=== PATIENT | male | born 1985 | race Hispanic/Latino ===

== ENCOUNTER 2017-09-07 18:05 | Emergency (ER) | payer BC ==
[2017-09-07 18:28] VITALS: BP 166/98; RESP 16; TEMP 98.2; O2SAT 100
--- NOTE | 2017-09-07 19:51 | ED PDOC ---
HPI: General Adult Time Seen by Provider: 09/07/17 19:08 Chief Complaint (Nursing): Palpitations Chief Complaint (Provider): Sinus pressure History Per: Patient History/Exam Limitations: no limitations Onset/Duration Of Symptoms: Days (x1 week) Have you had recent travel within the past 21 days to any of the following countries: [place], [place], [place] or [place]?: No Additional Complaint(s): 32 year old mal with past medical history of chronics sinus disease and anxiety presents to the the ED complaining of sinus pressure in the forehead and nose. The patient states that for the past year he has had these symptoms but it had gotten worse over the past week. He further reports that today he began to feel anxious, felt a sense of impending doom and said he felt his heart racing out of his chest. Upon arrival to the ER patient states that he is feeling better. PMD: [facility] Past Medical History Reviewed: Historical Data, Nursing Documentation Vital Signs: Last Vital Signs Temp 98.2 F 09/07/17 18:26 Pulse 106 H 09/07/17 18:26 Resp 16 09/07/17 18:26 BP 166/98 H 09/07/17 18:26 Pulse Ox 100 09/07/17 20:05 - Medical History PMH: Anxiety Other PMH: Chronis Sinus Disease - Surgical History Surgical History: No Surg Hx - Family History Family History: States: Unknown Family Hx - Social History Current smoker - smoking cessation education provided: No Alcohol: None Drugs: Denies - Home Medications Home Medications: Ambulatory Orders Medication Instructions Recorded Fluticasone Nasal [Flonase] 1 - 2 spr NS DAILY #1 spr 09/07/17 predniSONE [predniSONE Tab] 60 mg PO DAILY #9 tab 09/07/17 - Allergies Allergies/Adverse Reactions: Allergies Allergy/AdvReac Type Severity Reaction Status Date / Time Sulfa (Sulfonamide Allergy RASH Verified 09/07/17 18:26 Antibiotics) Review of Systems ROS Statement: Except As Marked, All Systems Reviewed And Found Negative ENT: Positive for: Other (sinus pressure in forehead and nose.) Psych: Positive for: Anxiety Physical Exam - Reviewed Nursing Documentation Reviewed: Yes Vital Signs Reviewed: Yes - Physical Exam Appears: Positive for: Non-toxic, No Acute Distress Head Exam: Positive for: ATRAUMATIC, NORMAL INSPECTION, NORMOCEPHALIC Skin: Positive for: Normal Color, Warm, Dry. Negative for: Rash Eye Exam: Positive for: Normal appearance, EOMI, PERRL ENT: Positive for: Other (tenderness to maxillary and ethmoid sinus ). Negative for: Nasal Congestion, Tonsillar Exudate Neck: Positive for: Normal, Painless ROM, Supple Cardiovascular/Chest: Positive for: Regular Rate, Rhythm, Chest Non Tender. Negative for: Tachycardia Respiratory: Positive for: Normal Breath Sounds. Negative for: Wheezing, Respiratory Distress Gastrointestinal/Abdominal: Positive for: Normal Exam, Bowel Sounds, Soft. Negative for: Tenderness, Guarding, Rebound Back: Positive for: Normal Inspection. Negative for: L CVA Tenderness, R CVA Tenderness Extremity: Positive for: Normal ROM. Negative for: Tenderness, Deformity, Swelling Neurologic/Psych: Positive for: Alert, Oriented, Gait - ECG O2 Sat by Pulse Oximetry: 100 (RA) Pulse Ox Interpretation: Normal Medical Decision Making Medical Decision Makin Initial Impression 32 y/o male presenting with anxiety and chronic sinus disease Initial Plan: * Troponin * Reevaluation 8PM Patient is feeling better. Recommended using neti pot and nasal/oral steroids and following up with ENT. Patient agreeble to plan. Return precautions discussed. Documented by Wanda arteaga acting as a scribe for José Miguel Rousseau MD. All medical record entries made by the Scribe were at my direction and personally dictated by me. I have reviewed the chart and agree that the record accurately reflects my personal performance of the history, physical exam, medical decision making, and the department course for this patient. I have also personally directed, reviewed, and agree with the discharge instructions and disposition. Disposition - Clinical Impression Clinical Impression: Palpitations - Disposition Referrals: Jacob Camacho MD [Staff Provider] - Disposition Time: 20:17 Condition: STABLE Additional Instructions: I HIGHLY recommend a neti-pot and usage regularly to rinse your sinuses. Prescriptions: Fluticasone Nasal [Flonase] 1 - 2 spr NS DAILY #1 spr predniSONE [predniSONE Tab] 60 mg PO DAILY #9 tab Instructions: Sinusitis (ED), Anxiety (ED) Forms: [employer] (Dutch)
[2017-09-07 20:19] VITALS: PULSE 85
== END 2017-09-07 20:19 | disposition home or self-care (01) ==
LOC: H.ER 18:05
DX: R00.2 Palpitations (principal); F41.9 Anxiety disorder, unspecified

== ENCOUNTER 2018-02-22 17:10 | Emergency (ER) | payer BC ==
[2018-02-22 18:11] LABS: BASO # 0.1 K/uL (0.0-0.2); BASO % 0.8 % (0.0-2.0); EOS # 0.1 K/uL (0.0-0.7); EOS % 1.2 % (0.0-4.0); HEMOGLOBIN 15.1 g/dL (12.0-18.0); LYMPH # 1.9 K/uL (1.0-4.3); LYMPH % 19.3 % (20.0-40.0); MEAN CELL VOLUME 92.8 fl (80.0-94.0); MEAN CORPUSCULAR HEMOGLOBIN 31.7 pg (27.0-31.0); MEAN CORPUSCULAR HGB CONC 34.1 g/dL (33.0-37.0); MEAN PLATELET VOLUME 9.1 fl (7.2-11.7); MONO # 0.8 K/uL (0.0-0.8); NEUT # 6.8 K/uL (1.8-7.0); NEUT % 70.7 % (50.0-75.0); NRBC % 0.1 % (0.0-0.0); RBC 4.77 Mil/uL (4.40-5.90); RED CELL DISTRIBUTION WIDTH 13.4 % (11.5-14.5); WHITE BLOOD COUNT 9.7 K/uL (4.8-10.8)
[2018-02-22 18:21] LABS: PROTHROMBIN TIME 10.5 Seconds (9.8-13.1)
[2018-02-22 18:23] LABS: ALB/GLOB RATIO 1.4 (1.0-2.1); ALBUMIN 4.6 g/dL (3.5-5.0); ALT/SGPT 91 U/L (21-72); AST/SGOT 56 U/L (17-59); BLOOD UREA NITROGEN 11 mg/dl (9-20); CALCIUM 9.9 mg/dL (8.4-10.2); GFR NON-AFRICAN AMERICAN > 60
--- NOTE | 2018-02-22 18:41 | ED PDOC ---
HPI: General Adult Time Seen by Provider: 02/22/18 17:24 Chief Complaint (Nursing): Chest Pain Chief Complaint (Provider): Tingling Sensation History Per: Patient History/Exam Limitations: no limitations Onset/Duration Of Symptoms: Hrs Current Symptoms Are (Timing): Still Present Additional Complaint(s): Balta Simeon is a 32 year old male with a past medical history of GERD and anxiety who is presenting to the ED with complaints of shoulder tingling radiating down the left arm to the fourth and fifth digit. Patient also complains of tingling to the left chest wall and reports upper back pain. He denies any weakness chest pain, or shortness of breath. PMD: none provided Past Medical History Reviewed: Historical Data, Nursing Documentation, Vital Signs Vital Signs: Last Vital Signs Temp 98.4 F 02/22/18 19:41 Pulse 92 H 02/22/18 19:46 Resp 18 02/22/18 19:41 BP 136/93 H 02/22/18 19:41 Pulse Ox 99 02/22/18 19:46 - Medical History PMH: Anxiety, GERD - Surgical History Surgical History: No Surg Hx - Family History Family History: States: Unknown Family Hx - Social History Current smoker - smoking cessation education provided: No Alcohol: None Drugs: Denies - Home Medications Home Medications: Ambulatory Orders Medication Instructions Recorded Fluticasone Nasal [Flonase] 1 - 2 spr NS DAILY #1 spr 09/07/17 predniSONE [predniSONE Tab] 60 mg PO DAILY #9 tab 09/07/17 Cyclobenzaprine [Cyclobenzaprine 10 mg PO TID PRN #15 tab 02/22/18 HCl] Ibuprofen [Motrin] 600 mg PO Q6H PRN #20 tab 02/22/18 - Allergies Allergies/Adverse Reactions: Allergies Allergy/AdvReac Type Severity Reaction Status Date / Time Sulfa (Sulfonamide Allergy RASH Verified 02/22/18 17:12 Antibiotics) Review of Systems ROS Statement: Except As Marked, All Systems Reviewed And Found Negative Cardiovascular: Positive for: Other (chest wall tingling) Musculoskeletal: Positive for: Back Pain, Other (left arm and hand tingling ) Physical Exam - Reviewed Nursing Documentation Reviewed: Yes Vital Signs Reviewed: Yes - Physical Exam Appears: Positive for: Well, Non-toxic, No Acute Distress Head Exam: Positive for: ATRAUMATIC, NORMAL INSPECTION, NORMOCEPHALIC Skin: Positive for: Normal Color, Warm, DRY Eye Exam: Positive for: EOMI, Normal appearance, PERRL ENT: Positive for: Normal ENT Inspection Neck: Positive for: Normal, Painless ROM Cardiovascular/Chest: Positive for: Regular Rate, Rhythm. Negative for: Murmur Respiratory: Positive for: Normal Breath Sounds. Negative for: Respiratory Distress Gastrointestinal/Abdominal: Positive for: Normal Exam, Soft. Negative for: Tenderness Back: Positive for: Normal Inspection, Other (left upper back mild tenderness, full ROM of arm and msucle strength 5/5). Negative for: L CVA Tenderness, R CVA Tenderness, Vertebral Tenderness Extremity: Positive for: Normal ROM. Negative for: Pedal Edema, Deformity, Swelling Neurologic/Psych: Positive for: Alert, Oriented. Negative for: Motor/Sensory Deficits - Laboratory Results Result Diagrams: 02/22/18 18:05 02/22/18 18:05 - ECG ECG Rhythm: Positive for: Normal QRS, Normal ST Segment, Sinus Rhythm Rate: 92 O2 Sat by Pulse Oximetry: 99 (RA) Pulse Ox Interpretation: Normal Medical Decision Making Medical Decision Making: Time: 17:47 Impression: peripheral neuropathy vs. thoracic outlet syndrome Plan: --CT Cervical Spine --CMP --Troponin --CBC --PTT --Coag --Chest X-Ray Accession No. : [id number] Patient Name / ID : LILI SIMEON BALTA / [id number] Exam Date : 02/22/2018 18:07:58 ( Approved ) Study Comment : Sex / Age : M / 32Y Creator : Jabari Gray MD Dictator : Jabari Gray MD Manager Distribution : Set Up Worker : Jabari Gray MD Approver2 : Report Date : 02/23/2018 08:27:43 My Comment : Date of service: 02/22/2018 PROCEDURE: CT Cervical Spine without contrast HISTORY: L shoulder/arm tingling COMPARISON: None available. TECHNIQUE: Axial computed tomography images were obtained of the cervical spine without the use of intravenous contrast. Coronal and sagittal reformatted images were created and reviewed. Radiation dose: Total exam DLP = 359.7 mGy-cm. This CT exam was performed using one or more of the following dose reduction techniques: Automated exposure control, adjustment of the mA and/or kV according to patient size, and/or use of iterative reconstruction technique. FINDINGS: VERTEBRAE: No fracture. Normal alignment. No destructive bony lesion. DISCS/SPINAL CANAL/NEURAL FORAMINA: No significant central canal or neural foraminal stenosis. Discs heights are grossly preserved. PARASPINAL SOFT TISSUES: Unremarkable. OTHER FINDINGS: None. IMPRESSION: Unremarkable CT of the cervical spine. Scribe Attestation: Documented by, Angelina Hernandez acting as a scribe for Alyson Salinas MD. Provider Scribe Attestation: All medical record entries made by the Scribe were at my direction and personally dictated by me. I have reviewed the chart and agree that the record accurately reflects my personal performance of the history, physical exam, medical decision making, and the department course for this patient. I have also personally directed, reviewed, and agree with the discharge instructions and disposition. Disposition - Clinical Impression Clinical Impression: Paresthesia of left upper extremity - Disposition Referrals: Suzanna Guerrero [Outside] Disposition: Routine/Home Disposition Time: 19:18 Condition: STABLE Additional Instructions: FOLLOW-UP WITH PMD WITHIN 2 DAYS FOR REEVALUATION. Prescriptions: Cyclobenzaprine [Cyclobenzaprine HCl] 10 mg PO TID PRN #15 tab PRN Reason: Pain Ibuprofen [Motrin] 600 mg PO Q6H PRN #20 tab PRN Reason: Pain, Moderate (4-7) Instructions: Thoracic Outlet Syndrome, Paresthesias (DC) Forms: [employer] (Arabic) BRIANNA Risk Score for UA/NSTEMI - BRIANNA Risk Score Age > 64: NO 3 or more CAD Risk Factors: NO Known CAD (Stenosis greater than 50%): NO Aspirin use in past 7 days: NO Severe Angina: NO EKG ST changes greater than 0.5mm: NO Positive Cardiac Marker: NO BRIANNA Score: 0 % risk at 14 days of: all cause mortality, new or recurrent GA, or severe recurrent ischemia requiring urgen revascularization: 5%
[2018-02-22 19:20] VITALS: BP 136/93; RESP 18; TEMP 98.4
[2018-02-22 19:46] VITALS: PULSE 92; O2SAT 99
--- NOTE | 2018-02-23 08:10 | RAD ---
Date of service: 02/22/2018 HISTORY: L chest tingling COMPARISON: No prior. TECHNIQUE: Chest PA and lateral FINDINGS: LUNGS: No active pulmonary disease. PLEURA: No significant pleural effusion identified. No pneumothorax apparent. CARDIOVASCULAR: Normal. OSSEOUS STRUCTURES: No significant abnormalities. VISUALIZED UPPER ABDOMEN: Normal. OTHER FINDINGS: None. IMPRESSION: No active disease.
--- NOTE | 2018-02-23 08:29 | CT ---
Date of service: 02/22/2018 PROCEDURE: CT Cervical Spine without contrast HISTORY: L shoulder/arm tingling COMPARISON: None available. TECHNIQUE: Axial computed tomography images were obtained of the cervical spine without the use of intravenous contrast. Coronal and sagittal reformatted images were created and reviewed. Radiation dose: Total exam DLP = 359.7 mGy-cm. This CT exam was performed using one or more of the following dose reduction techniques: Automated exposure control, adjustment of the mA and/or kV according to patient size, and/or use of iterative reconstruction technique. FINDINGS: VERTEBRAE: No fracture. Normal alignment. No destructive bony lesion. DISCS/SPINAL CANAL/NEURAL FORAMINA: No significant central canal or neural foraminal stenosis. Discs heights are grossly preserved. PARASPINAL SOFT TISSUES: Unremarkable. OTHER FINDINGS: None. IMPRESSION: Unremarkable CT of the cervical spine.
== END 2018-02-22 19:47 | disposition home or self-care (01) ==
LOC: H.ER 17:10
DX: R20.0 Anesthesia of skin (principal)
CPT/HCPCS: 71046; 72125; 80053; 84484; 85025; 85610; 85730; 96374; 99284; J1885

== ENCOUNTER 2018-03-24 15:48 | Emergency (ER) | payer BC ==
[2018-03-24] MEDS ORDERED: Sodium Chloride 0.9% 1,000 ML IV STA (16:55)
[2018-03-24] MEDS ORDERED: Iohexol 240 (50 ml) PO ONE (17:35)
[2018-03-24 17:47] LABS: BASO # 0.1 K/uL (0.0-0.2); BASO % 0.5 % (0.0-2.0); EOS % 0.1 % (0.0-4.0); HEMOGLOBIN 16.4 g/dL (12.0-18.0); LYMPH # 1.8 K/uL (1.0-4.3); MEAN CELL VOLUME 93.7 fl (80.0-94.0); MEAN CORPUSCULAR HEMOGLOBIN 31.4 pg (27.0-31.0); MEAN CORPUSCULAR HGB CONC 33.5 g/dL (33.0-37.0); MEAN PLATELET VOLUME 9.5 fl (7.2-11.7); MONO # 0.6 K/uL (0.0-0.8); MONO % 4.8 % (0.0-10.0); NEUT # 10.5 K/uL (1.8-7.0); NEUT % 80.6 % (50.0-75.0); RBC 5.21 Mil/uL (4.40-5.90); RED CELL DISTRIBUTION WIDTH 13.7 % (11.5-14.5)
[2018-03-24] MEDS ORDERED: Iohexol 240 (50 ml) ONE (17:49)
--- NOTE | 2018-03-24 17:55 | ED PDOC ---
HPI: Abdomen Time Seen by Provider: 03/24/18 16:26 Chief Complaint (Nursing): Abdominal Pain Chief Complaint (Provider): Abdominal Pain History Per: Patient History/Exam Limitations: no limitations Onset/Duration Of Symptoms: Days (x5) Current Symptoms Are (Timing): Still Present (and worsening) Location Of Pain/Discomfort: RLQ Quality Of Discomfort: Aching Associated Symptoms: Nausea, Loss Of Appetite Additional Complaint(s): 33 year old male with a history of GERD and 2 hernias presents to the ED for evaluation of RLQ aching pain onset x5 days. Patient reports he developed nausea and worsening pain today, prompting a visit to his PMD. After PMDs exam , there was concern for appendicitis, so he was sent to ED for further evaluation. Patient reports loss of appetite today and describes pain as a 6 out of 10 in severity. He denies fever, chills, vomiting, diarrhea, cough, shortness of breath, urinary symptoms, or any other physical complaints. 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 PMD: [place] Past Medical History Reviewed: Historical Data, Nursing Documentation, Vital Signs Vital Signs: Last Vital Signs Temp 98.4 F 03/24/18 22:44 Pulse 77 03/24/18 22:44 Resp 16 03/24/18 22:44 BP 131/79 03/24/18 22:44 Pulse Ox 100 03/25/18 11:16 - Medical History PMH: Anxiety, GERD - Surgical History Other surgeries: x2 right knee surgeries, testicle descension - Family History Family History: States: Unknown Family Hx - Social History Current smoker - smoking cessation education provided: No Ex-Smoker (has not smoked in the last 12 months): No Alcohol: Social Drugs: Denies - Home Medications Home Medications: Ambulatory Orders Medication Instructions Recorded Fluticasone Nasal [Flonase] 1 - 2 spr NS DAILY #1 spr 09/07/17 predniSONE [predniSONE Tab] 60 mg PO DAILY #9 tab 09/07/17 Cyclobenzaprine [Cyclobenzaprine 10 mg PO TID PRN #15 tab 02/22/18 HCl] Ibuprofen [Motrin] 600 mg PO Q6H PRN #20 tab 02/22/18 Ondansetron ODT [Zofran ODT] 4 mg PO Q8 PRN #10 odt 03/24/18 - Allergies Allergies/Adverse Reactions: Allergies Allergy/AdvReac Type Severity Reaction Status Date / Time Penicillins Allergy RASH Verified 03/24/18 15:59 Sulfa (Sulfonamide Allergy RASH Verified 02/22/18 17:12 Antibiotics) Review of Systems ROS Statement: Except As Marked, All Systems Reviewed And Found Negative Gastrointestinal: Positive for: Nausea, Abdominal Pain Physical Exam - Reviewed Nursing Documentation Reviewed: Yes Vital Signs Reviewed: Yes - Physical Exam Comments: GENERAL APPEARANCE: Patient is awake, alert, oriented x 3; uncomfortable appearing but in no acute distress. SKIN: Warm, dry; (-) cyanosis. EYES: (-) conjunctival pallor, (-) scleral icterus. ENMT: Mucous membranes moist. Airway patent, (-) stridor. NECK: Supple, FROM CHEST AND RESPIRATORY: (-) rales, (-) rhonchi, (-) wheezes; breath sounds equal bilaterally. Respirations even and nonlabored. HEART AND CARDIOVASCULAR: (-) irregularity ABDOMEN AND GI: Soft (-) distention. Bowel sounds active x4; (+)tenderness in RLQ (+) RLQ guarding, (-) rebound, (-) palpable masses, (-) CVA tenderness, (+) McBurney's point tenderness. (+) obturator's sign. EXTREMITIES: (-) deformity NEURO AND PSYCH: Mental status as above; (-) focal findings. Gait steady, speech clear (-) facial asymmetry. - Laboratory Results Result Diagrams: 03/24/18 17:39 03/24/18 17:39 Urine dip results: Positive for: Blood (trace), Ketones (trace). Negative for: Leukocyte Esterase, Nitrate, Glucose, Bilirubin, Protein - ECG O2 Sat by Pulse Oximetry: 100 (RA) Pulse Ox Interpretation: Normal Medical Decision Making Medical Decision Making: Time: 1654 Initial Impression: abdominal pain, rule out appendicitis Initial Plan: --abdomen and pelvis CT with PO and IV contrast --CMP --Lipase --Urine dip --CBC with differential --Omnipaque --Toradol IVP --Zofran IVP 1750 Udip reviewed. U/A and U/C ordered. 1810 WBC 13.0 with neutrophil shift. H&H stable. Lipase 87 CMP grossly unremarkable. 1940 U/A unremarkable. 1999 Case endorsed to Donovan Roberts PA-C pending CT results, re-evaluation, and further disposition. Scribe Attestation: Documented by Cristal Carpenter, acting as a scribe for Chantell Xavier PA-C Provider Scribe Attestation: All medical record entries made by the Scribe were at my direction and personally dictated by me. I have reviewed the chart and agree that the record accurately reflects my personal performance of the history, physical exam, medical decision making, and the department course for this patient. I have also personally directed, reviewed, and agree with the discharge instructions and disposition. Disposition - Clinical Impression Clinical Impression: Abdominal pain - Patient ED Disposition Is Patient to be Admitted: Transfer of Care (Case endorsed to Donovan Roberts PA-C pending CT results, re-evaluation, and further disposition.) - Disposition Disposition: Transfer of Care (Case endorsed to Donovan Roberts PA-C pending CT results, re-evaluation, and further disposition.) Disposition Time: 20:00 Condition: FAIR Prescriptions: Ondansetron ODT [Zofran ODT] 4 mg PO Q8 PRN #10 odt PRN Reason: Nausea/Vomiting - POA Present On Arrival: None Results - Lab Results Lab Results: 03/24/18 03/24/18 03/24/18 18:55 17:39 17:39 WBC 13.0 H RBC 5.21 Hgb 16.4 Hct 48.8 MCV 93.7 MCH 31.4 H MCHC 33.5 RDW 13.7 Plt Count 304 MPV 9.5 Neut % (Auto) 80.6 H Lymph % (Auto) 14.0 L [place] % (Auto) 4.8 Eos % (Auto) 0.1 Baso % (Auto) 0.5 Neut # (Auto) 10.5 H Lymph # (Auto) 1.8 [place] # (Auto) 0.6 Eos # (Auto) 0.0 Baso # (Auto) 0.1 Sodium 141 Potassium 4.1 Chloride 102 Carbon Dioxide 26 Anion Gap 17 BUN 9 Creatinine 0.9 Est GFR ( Amer) > 60 Est GFR (Non-Af Amer) > 60 Random Glucose 106 Calcium 10.5 H Total Bilirubin 0.5 AST 59 ALT 102 H Alkaline Phosphatase 90 Total Protein 8.7 H Albumin 5.0 Globulin 3.7 Albumin/Globulin Ratio 1.3 Lipase 87 Urine Color Yellow Urine Clarity Clear Urine pH 7.0 Ur Specific [employer] 1.010 Urine Protein Negative Urine Glucose (UA) Neg Urine Ketones Trace Urine Blood Negative Urine Nitrate Negative Urine Bilirubin Negative Urine Urobilinogen 0.2-1.0 Ur Leukocyte Esterase Neg Urine RBC (Auto) < 1
[2018-03-24 18:00] LABS: ALB/GLOB RATIO 1.3 (1.0-2.1); ALT/SGPT 102 U/L (21-72); AST/SGOT 59 U/L (17-59); BLOOD UREA NITROGEN 9 mg/dl (9-20); CALCIUM 10.5 mg/dL (8.4-10.2); GFR NON-AFRICAN AMERICAN > 60; LIPASE 87 U/L (23-300)
[2018-03-24 19:07] LABS: URINE BILIRUBIN NEGATIVE (NEGATIVE); URINE BLOOD NEGATIVE (NEGATIVE); URINE CLARITY CLEAR (Clear); URINE COLOR YELLOW (YELLOW); URINE GLUCOSE (UA) NEG (Normal); URINE LEUKOCYTE ESTERASE NEG Leu/uL (Negative); URINE PROTEIN NEGATIVE (NEGATIVE); URINE UROBILINOGEN 0.2-1.0 mg/dL (0.2-1.0)
[2018-03-24] MEDS ORDERED: Sodium Chloride 0.9% 50 ML IV ONE (19:16)
[2018-03-24] MEDS ORDERED: Iohexol 300 100 ML IJ ONE (19:16)
--- NOTE | 2018-03-24 21:00 | ED PDOC ---
- Laboratory Results Result Diagrams: 03/24/18 17:39 03/24/18 17:39 - ECG O2 Sat by Pulse Oximetry: 100 (RA) - Progress ED Course And Treament: Case endorsed to board writer from Duc HERMAN pending CT EXAM: CT Abdomen and Pelvis With Intravenous Contrast CLINICAL HISTORY: 33 years old, male; Pain; Abdominal pain; Localized; Right lower quadrant (rlq); Prior surgery; Surgery date: 6+ months; Surgery type: Testicle descension at 3 yrs old; Patient HX: Gerd. 2 hernia's; Additional info: Rlq pain, sent by pmd R/O appy TECHNIQUE: Axial computed tomography images of the abdomen and pelvis with intravenous contrast. All CT scans at this facility use at least one of these dose optimization techniques: automated exposure control; mA and/or kV adjustment per patient size (includes targeted exams where dose is matched to clinical indication); or iterative reconstruction. Coronal and sagittal reformatted images were created and reviewed. CONTRAST: 95 mL of [id number] was administered intravenously. COMPARISON: No relevant prior studies available. FINDINGS: Lung bases: Unremarkable. No mass. No consolidation. ABDOMEN: Liver: Mild fatty infiltration of the liver. Gallbladder and bile ducts: Unremarkable. No calcified stones. No ductal dilation. Pancreas: Unremarkable. No mass. No ductal dilation. Spleen: Unremarkable. No splenomegaly. Adrenals: Unremarkable. No mass. Kidneys and ureters: Subcentimeter exophytic left renal cyst. No hydronephrosis. Stomach and bowel: Unremarkable. No obstruction. No mucosal thickening. PELVIS: Appendix: Normal appendix. Bladder: Unremarkable. No mass. Reproductive: Unremarkable as visualized. ABDOMEN and PELVIS: Intraperitoneal space: Unremarkable. No free air. No significant fluid collection. Bones/joints: No acute fracture. No dislocation. Soft tissues: Unremarkable. Vasculature: Unremarkable. No abdominal aortic aneurysm. Lymph nodes: Unremarkable. No enlarged lymph nodes. IMPRESSION: Normal appendix. On re-eval, patient resting comfortably. Tolerated PO without complaints of nausea, increased pain. Vitals stable Patient educated on findings, discharged with rx Zofran Advised fluids. [place] diet Follow up PMD 2-3 days Return precautions given Patient demonstrates full understanding of discharge instructions Patient requires no further intervention in ED and is stable for discharge at this time Disposition - Clinical Impression Clinical Impression: Abdominal pain - POA Present On Arrival: None - Disposition Disposition: Routine/Home Disposition Time: 21:36 Condition: IMPROVED Prescriptions: Ondansetron ODT [Zofran ODT] 4 mg PO Q8 PRN #10 odt PRN Reason: Nausea/Vomiting Instructions: Acute Abdomen (Belly Pain) Forms: [employer] (Yoruba)
[2018-03-24 21:33] VITALS: BP 131/79; PULSE 77; RESP 16; TEMP 98.4
--- NOTE | 2018-03-25 10:15 | CT ---
Date of service: 03/24/2018 PROCEDURE: CT Abdomen and Pelvis with contrast HISTORY: RLQ pain, sent by PMD r/o appy COMPARISON: None. TECHNIQUE: Contrast dose: 95 mL Omnipaque 300 Radiation dose: Total exam DLP = 820.4 mGy-cm. This CT exam was performed using one or more of the following dose reduction techniques: Automated exposure control, adjustment of the mA and/or kV according to patient size, and/or use of iterative reconstruction technique. FINDINGS: LOWER THORAX: Unremarkable. LIVER: Hepatic steatosis. No gross lesion or ductal dilatation. GALLBLADDER AND BILE DUCTS: Unremarkable. PANCREAS: Unremarkable. No gross lesion or ductal dilatation. SPLEEN: Unremarkable. ADRENALS: Unremarkable. No mass. KIDNEYS AND URETERS: 1.8 cm left midpole cyst. No hydronephrosis. No solid mass. VASCULATURE: Unremarkable. No aortic aneurysm. BOWEL: Unremarkable. No obstruction. No gross mural thickening. APPENDIX: Normal appendix. PERITONEUM: Small fat containing umbilical hernia. Small fat containing right inguinal hernia. No free fluid. No free air. LYMPH NODES: Unremarkable. No enlarged lymph nodes. BLADDER: Unremarkable. REPRODUCTIVE: Unremarkable. BONES: No acute fracture. L5-S1 degenerative changes. OTHER FINDINGS: None. IMPRESSION: No evidence of acute appendicitis. No acute abdominal pelvic pathology.
[2018-03-25 11:12] VITALS: O2SAT 100
== END 2018-03-24 22:45 | disposition home or self-care (01) ==
LOC: H.ER 15:48
DX: R10.31 Right lower quadrant pain (principal); Z87.891 Personal history of nicotine dependence; Z88.0 Allergy status to penicillin
CPT/HCPCS: 74177; 80053; 81003; 83690; 85025; 87086; 96374; 96375; 99283; J1885; J2405; J7030; Q9966; Q9967

== ENCOUNTER 2018-05-29 00:27 | Emergency (ER) | payer BC ==
[2018-05-29 00:58] VITALS: TEMP 98.2
[2018-05-29 01:51] LABS: BASO # 0.1 K/uL (0.0-0.2); BASO % 1.1 % (0.0-2.0); EOS # 0.2 K/uL (0.0-0.7); EOS % 2.6 % (0.0-4.0); HEMOGLOBIN 15.5 g/dL (12.0-18.0); LYMPH # 2.4 K/uL (1.0-4.3); LYMPH % 31.7 % (20.0-40.0); MEAN CELL VOLUME 94.1 fl (80.0-94.0); MEAN CORPUSCULAR HEMOGLOBIN 31.4 pg (27.0-31.0); MEAN CORPUSCULAR HGB CONC 33.4 g/dL (33.0-37.0); MEAN PLATELET VOLUME 9.1 fl (7.2-11.7); MONO # 0.7 K/uL (0.0-0.8); MONO % 9.3 % (0.0-10.0); NEUT # 4.3 K/uL (1.8-7.0); NEUT % 55.3 % (50.0-75.0); RBC 4.92 Mil/uL (4.40-5.90); RED CELL DISTRIBUTION WIDTH 13.5 % (11.5-14.5); WHITE BLOOD COUNT 7.7 K/uL (4.8-10.8)
--- NOTE | 2018-05-29 01:53 | ED PDOC ---
HPI: Back Time Seen by Provider: 05/29/18 00:40 Chief Complaint (Nursing): Upper Extremity Problem/Injury Chief Complaint (Provider): Neck Pain History Per: Patient History/Exam Limitations: no limitations Onset/Duration Of Symptoms: Hrs (since 1430) Current Symptoms Are (Timing): Still Present Additional Complaint(s): 33 year old male presents to the ED for evaluation of neck pain radiating into his right arm and back associated with anxiety. Patient states that he was seen here in January 2018 for a neck injury with radiating pain to his arms and chest and has been going to PT since February. Earlier today at work, patient reports that around 1430 he turned his head and felt immediate pain in his neck which ran down his spine and right arm, feeling dizzy for a few moments. Denies LOC. This episode caused him to have a panic attack with continued anxiety throughout the day. Before arrival, patient reports taking Nyquil for sinusitis facial pain, but his continued anxiety prompted the ED visit. Of note, patient says he has Xanax PRN, but has not been taking it because he is nervous to. PMD: unable to pronounce / spell, in [place] Past Medical History Reviewed: Historical Data, Nursing Documentation, Vital Signs Vital Signs: Last Vital Signs Temp 98.2 F 05/29/18 00:57 Pulse 88 05/29/18 00:48 Resp 16 05/29/18 00:48 BP 147/101 H 05/29/18 00:48 Pulse Ox 98 05/29/18 00:48 - Medical History PMH: Anxiety, GERD Other PMH: Sinusitis - Surgical History Other surgeries: Ortho surg - Family History Family History: States: Unknown Family Hx - Social History Current smoker - smoking cessation education provided: No Alcohol: Social Drugs: Denies - Home Medications Home Medications: Ambulatory Orders Medication Instructions Recorded Fluticasone Nasal [Flonase] 1 - 2 spr NS DAILY #1 spr 09/07/17 RX: predniSONE [predniSONE Tab] 60 mg PO DAILY #9 tab 09/07/17 Cyclobenzaprine [Cyclobenzaprine 10 mg PO TID PRN #15 tab 02/22/18 HCl] Ibuprofen [Motrin] 600 mg PO Q6H PRN #20 tab 02/22/18 Ondansetron ODT [Zofran ODT] 4 mg PO Q8 PRN #10 odt 03/24/18 - Allergies Allergies/Adverse Reactions: Allergies Allergy/AdvReac Type Severity Reaction Status Date / Time iodine Allergy RASH Verified 05/29/18 00:47 Penicillins Allergy RASH Verified 05/29/18 00:46 Sulfa (Sulfonamide Allergy RASH Verified 05/29/18 00:46 Antibiotics) Review of Systems ROS Statement: Except As Marked, All Systems Reviewed And Found Negative ENT: Positive for: Other (Sinus pain secondary to sinusitis) Musculoskeletal: Positive for: Neck Pain (radiating down right arm and back) Neurological: Positive for: Dizziness (but resolved). Negative for: Other (loss of consciousness) Psych: Positive for: Anxiety Physical Exam - Reviewed Nursing Documentation Reviewed: Yes Vital Signs Reviewed: Yes - Physical Exam Appears: Positive for: No Acute Distress (but anxious appearing) Head Exam: Positive for: ATRAUMATIC, NORMOCEPHALIC Skin: Positive for: Normal Color Eye Exam: Positive for: Normal appearance ENT: Positive for: Normal ENT Inspection Neck: Positive for: Normal, Supple Cardiovascular/Chest: Positive for: Regular Rate, Rhythm Respiratory: Positive for: Normal Breath Sounds. Negative for: Respiratory Distress Gastrointestinal/Abdominal: Positive for: Normal Exam, Soft. Negative for: Tenderness Back: Positive for: Normal Inspection. Negative for: L CVA Tenderness, R CVA Tenderness, Vertebral Tenderness Extremity: Positive for: Normal ROM. Negative for: Tenderness (to bilat UE) Neurologic/Psych: Positive for: Alert, immigration officer II-XII (intact), Oriented (x3), Mood/Affect (anxious), Gait (stable). Negative for: Motor/Sensory Deficits, Aphasia, Facial Droop - Laboratory Results Result Diagrams: 05/29/18 01:47 05/29/18 01:47 - ECG O2 Sat by Pulse Oximetry: 98 (RA) Pulse Ox Interpretation: Normal Medical Decision Making Medical Decision Making: Time: 130 Initial Impression: neck pain, anxiety Initial Plan: --CMP --CBC with differential --Toradol 30mg IM --Reevaluation 0323 Upon reevaluation, patient is sleeping comfortably in no distress, stable for discharge with improvement of symptoms. pt instructed to follow up with pcp, likely anxiety caused his reaction labs reviewed. pt vitals stable Scribe Attestation: Documented by Virginia Grover, acting as a scribe for Caio Louise MD. Provider Scribe Attestation: All medical record entries made by the Scribe were at my direction and personally dictated by me. I have reviewed the chart and agree that the record accurately reflects my personal performance of the history, physical exam, medical decision making, and the department course for this patient. I have also personally directed, reviewed, and agree with the discharge instructions and disposition. Disposition - Clinical Impression Clinical Impression: Anxiety - Patient ED Disposition Is Patient to be Admitted: No Counseled Patient/Family Regarding: Studies Performed, Diagnosis, Need For Followup - Disposition Disposition: Routine/Home Disposition Time: 03:20 Condition: IMPROVED Additional Instructions: follow up with your primary doctor in 2 days return to the ED with any worsening or concerning symptoms Instructions: Anxiety, Adult (DC) Forms: [employer] (Amharic)
[2018-05-29 02:00] LABS: ALB/GLOB RATIO 1.2 (1.0-2.1); ALBUMIN 4.4 g/dL (3.5-5.0); ALT/SGPT 83 U/L (21-72); AST/SGOT 45 U/L (17-59); BLOOD UREA NITROGEN 14 mg/dl (9-20); CALCIUM 9.5 mg/dL (8.4-10.2); GFR NON-AFRICAN AMERICAN > 60
[2018-05-29 02:49] VITALS: BP 135/71; PULSE 71; RESP 17
[2018-05-29 03:24] VITALS: O2SAT 98
== END 2018-05-29 03:30 | disposition home or self-care (01) ==
LOC: H.ER 00:27
DX: F41.0 Panic disorder [episodic paroxysmal anxiety] (principal)
CPT/HCPCS: 80053; 85025; 96374; 99284; J1885